=== PATIENT | female | born 1975 ===

== ENCOUNTER → 2023-03-21 11:03 | Day surgery (SDC) | payer MEDICARE, MEDICAID, SELFPAY ==
[2023-03-16 10:37] LABS: Add Urine Microscopic? NO; Charge for UA Resulting for Rev
[2023-03-16 10:44] LABS: Bilirubin Urine Neg (Negative); Blood Urine Neg (Negative); Glucose Urine UA Norm (Normal); Ketones Urine Negative (Negative); Leukocyte Esterase Urine Negative (Negative); Nitrate Urine Negative (Negative); Protein Urine Neg (Negative); Urine Appearance Clear (CLEAR); Urine Color Yellow (Yellow); Urobilinogen Urine Norm (Negative); pH Urine 5 (5-7)
--- NOTE | 2023-03-16 12:04 | ANES.PREANE2 ---
Pre-Anesthetic Assessment Height/Weight: Height 1.75 m Operation Date: 03/21/23 13:45 Proposed Procedures p Excision of lipoma 59867 D17.1(Not Applicable) - Glenn Howard MD Familial anesthetic complications: slow to wake up Was Beta Sandra taken within 24 hours: N/A Was Clonidine taken within 24 hours: N/A Social No alcohol and No tobacco Exam alert, oriented x 3, clear to auscultation bilaterally and regular rate & rhythm Airway Submandibular: within normal limits Cervical ROM: within normal limits Mallampati: Class II Dentition: chipped (Very poor dentition) Metabolic Morbid Obesity Anesthetic Plan ASA status: 2 Anesthesia: Choice Medications/Allergies Home Medications Medication Instructions Recorded Confirmed Last Taken Type No Known Home Medications 02/03/23 03/09/23 Unknown History Allergies Allergy/AdvReac Type Severity Reaction Status Date / Time propoxyphene Allergy Severe ALGY-Anaphy Verified 02/20/23 14:56 [From Darvocet-N] laxis morphine Allergy crawling Verified 02/20/23 14:56 Penicillins Allergy crawling Verified 02/20/23 14:56 [facility] Anesthesia Medical History Endometriosis based on s/s; not confirmed with surgery No pertinent past medical history neghx:htn,dm,thyroid,dvt/pe PCP: none Surgical History H/O spinal fusion History of hysterectomy (~2000) [facility]; ovaries spared- performed by [facility] at [facility] for AUB and endometriosis Family History Father Heart disease Mother Hypertension Diabetes Denies family history of Colon cancer Ovarian cancer Prostate cancer Hyperlipidemia Breast cancer Uterine cancer Thyroid condition Stroke Data Anesthesia Urine 03/16/23 Range/Units 10:20 Urine Color Yellow (Yellow) Urine Appearance Clear (CLEAR) Urine pH 5 (5-7) Ur Specific [place] 1.020 (1.005-1.030) Urine Protein Neg (Negative) Urine Glucose (UA) Norm (Normal) Urine Ketones Negative (Negative) Urine Nitrate Negative (Negative) Urine Bilirubin Neg (Negative) Ur Leukocyte Esterase Negative (Negative) Cardiac Studies: No Data to Display
[2023-03-21] VITALS (8 sets, daily range): BP systolic 104–144; BP diastolic 66–102; PULSE 53–72; RESP 16–18; TEMP 36.1–36.7; O2SAT 97–99
[2023-03-21] MEDS: scopolamine 1.5 Patch 1 PATCH TRANSDERMA (11:31)
[2023-03-21] MEDS: sodium chloride 0.9% 1,000 ML 30 ML IV (11:45)
[2023-03-21 11:49] LABS: Basophils % 0.4 %; Eosinophils # 0.4 10^3/uL (0.0-0.8); Hematocrit 42.2 % (36-47); Lymphocytes # 2.4 10^3/uL (0.8-4.8); Lymphocytes % 35.8 %; Mean Corpuscular HGB Conc 32.2 g/dL (30-55); Mean Corpuscular Hemoglobin 27.9 pg (27-33); Mean Corpuscular Volume 86.5 fl (85-98); Mean Platelet Volume 10.5 fL (7.4-10.4); Monocytes # 0.5 10^3/uL (0.2-0.9); Monocytes % 6.7 %; Neutrophils # 3.47 10^3/uL (1.8-7.7); Nucleated Red Blood Cells % 0 %; Platelet Count 240 10^3/cmm (157-399); Red Blood Count 4.88 10^6/uL (3.85-5.65); Red Cell Distribution Width 12.6 % (12.1-15.1); White Blood Count 6.82 10^3/uL (3.29-11.43)
--- NOTE | 2023-03-21 11:54 | W.PM.OPSUD ---
Surgery/Procedure H&P Update DATE OF PROCEDURE: March 21, 2023 DATE H&P PERFORMED: 03/09/23 H&P UPDATE INFORMATION: I have reviewed H&P completed within last 30 days, I have examined patient prior to procedure and No changes to prior documentation PREOP DIAGNOSIS: perineal skin mass PLANNED PROCEDURE: Operation Date: 03/21/23 13:00 Proposed Procedures p Excision of lipoma 34842 D17.1(Not Applicable) - Glenn Howard MD
[2023-03-21] MEDS: vancomycin 1,000 MG in sodium chloride 0.9% 250 ML 250 MG IV (12:10)
[2023-03-21 12:16] LABS: Alanine Aminotransferase 20 U/L (0-33); Albumin Level 4.4 g/dL (3.5-5.2); Alkaline Phosphatase 89 U/L (35-105); Anion Gap 14.5 (5-19); Aspartate Amino Transferase 22 U/L (0-32); Carbon Dioxide 27 mmol/L (22-29); Chloride 103 mmol/L (98-107); Globulin 2.9 g/dL (1.3-4.6); Glomerular Filtration Rate 58.9 mL/min (90-130); Glucose 123 mg/dL (65-115); Potassium 5.5 mmol/L (3.5-5.1); Sodium 139 mmol/L (136-145); Total Bilirubin 0.6 mg/dL (0.15-1.2); Total Protein 7.3 g/dL (6.6-8.7)
--- NOTE | 2023-03-21 12:19 | P.ANESUD_ITS ---
Pre-Anesthetic Update Pre-Anesthetic Assessment: Date of Surgery/Procedure: 03/21/23 Preop Amaya gnosis: perineal skin mass Proposed Procedure: Operation Date: 03/21/23 13:00 Proposed Procedures p Excision of lipoma 44820 D17.1(Not Applicable) - Glenn Howard MD Any changes to Pre-Anesthetic Assessment?: No Last Intake: Intake Last Liquid Date 03/20/23 Last Liquid Time 16:00 Last Solid Date 03/20/23 Last Solid Time 16:00 Labs Last 48hrs: Short CBC 03/21/23 Range/Units 11:40 WBC 6.82 (3.29-11.43) 10^ 3/uL Hgb 13.60 (11.27-16.99) g/ dL Hct 42.2 (36-47) % MCV 86.5 (85-98) fl Plt Count 240 (157-399) 10^3/c mm Neut % (Auto) 51.0 % Neut # (Auto) 3.47 (1.8-7.7) 10^3/u L BMP 03/21/23 11:40 Sodium 139 Chloride 103 Carbon Dioxide 27 Liver Function 03/21/23 Range/Units 11:40 Total Bilirubin 0.6 (0.15-1.2) mg/dL AST 22 (0-32) U/L ALT 20 (0-33) U/L Alkaline Phosphata se 89 (35-105) U/L Albumin 4.4 (3.5-5.2) g/dL Blood Bank 03/21/23 11:40 Blood Type O Negative Rho(D) Type Negative Vitals: Temperature 96.9 F L 03/21/23 11:06 Temperature Source Temporal Artery S can 03/21/23 11:06 Pulse Rate 59 L 03/21/23 11:06 Pulse Rhythm Regular 03/21/23 11:22 Pulse Strength 3+ Normal 03/21/23 11:22 Respiratory Rate 18 03/21/23 11:06 Blood Pressure 133/102 03/21/23 11:06 Blood Pressure Iveth n 112 03/21/23 11:06 Pulse Oximetry 97 03/21/23 11:06 Oxygen Delivery Me thod Room Air 03/21/23 11:22 Exam: Pre-Anes Outpt Exam: alert, oriented x 3, clear to auscultation bilaterally and regular rate & rhythm Cardiac Studies: No Data to Display
[2023-03-21] MEDS: lidocaine-epi 1% PF 1:200,000 30 mL SDV INJECTION (12:41)
[2023-03-21 12:42] LABS: Blood Urea Nitrogen 13 mg/dL (6-20); Calcium 9.8 mg/dL (8.5-10.5); Osmolality Calculated 289 mOsm/kg (285-295)
--- NOTE | 2023-03-21 13:01 | PM.OP ---
Operative Report Date of procedure: March 21, 2023 Pre-op diagnosis: Pedunculated lipoma Post-op diagnosis: Same as above Post-op findings: Pedunculated lipoma at the medial aspect of right gluteal fold Procedure done: Excision of lipoma Specimens removed/disposition: Lipoma Surgeon: Glenn Howard MD Estimated blood loss (mL): 5 IV fluids (mL): 500 Complications: None Procedure: The patient was taken to the operating room. She was given intravenous sedation and the perineal area was sterilely prepped and draped in the usual fashion. 1% lidocaine with epinephrine was utilized as local anesthetic and aeliptical incision was made at the base of the lipom in right perineal gluteal fold. The skin and subcutaneous tissue were incised. The lipoma was grasped with an Allis clamp and blunt and sharp dissection was utilized to remove the mass without inuring the underlying neurovascular structures. The mass was submitted to Pathology. Good hemostasis was seen. The wound was irrigated and closed in layers. The adipose tissue was reapproximated with #2-0 Vicryl suture. The subcutaneous tissues were reapproximated with 2-0 Vicryl suture and the deep dermis was reapproximated with #3-0 Vicryl suture. The skin was closed with 2-0 undyed Vicryl in running subcuticular fashion. The patient was given wound care instructions and will follow up again in my office in one week. Overall prognosis is good.
--- NOTE | 2023-03-21 14:10 | ANE.PACU2 ---
Inpatient post-anesthesia follow up: Airway intact: Yes Vital signs: Temperature 98.1 F Pulse Rate 54 Respiratory Rate 18 Blood Pressure 130/86 Pulse Oximetry 99 Oxygen Delivery Me thod Room Air Oxygen Flow Rate Fraction of Inspir ed Oxygen Hydration adequate: Yes Nausea and vomiting: No Pain level: 1 Mental status: Baseline
== END | disposition home or self-care (01) ==
PROVIDERS: Visit Provider Obstetrics & Gynecology
PROC: (CPT 11422; principal; 2023-03-21 12:50)
DX: D17.1 Benign lipomatous neoplasm of skin and subcutaneous tissue of trunk (principal); E66.01 Morbid (severe) obesity due to excess calories; Z68.33 Body mass index [BMI] 33.0-33.9, adult; Z98.1 Arthrodesis status
CPT/HCPCS: 11422; 12041; 36415; 80053; 81003; 85025; 86850; 86900; 88304; J2250; J2704; J3010; J3370; J7030; J7050